=== PATIENT | female | born 1995 | race Caucasian/White ===

== ENCOUNTER 2024-03-19 02:59 | Inpatient (IN) | payer OTHER ==
[2024-03-19] VITALS (28 sets, daily range): BP systolic 110–169; BP diastolic 60–91; PULSE 71–110; TEMP 97.6–98.6
[~2024-03-19] VITALS: Ht 162.6 cm; Wt 75.9 kg
--- NOTE | 2024-03-19 03:15 | NUR ---
PT TO UNIT VIA WHEELCHAIR WITH SPOUSE WITH COMPLAINTS OF CTXs FOR THE LAST 2 HOURS. PT IS A G1L0 AT 40.4 WEEKS TODAY. DENIES LOF, VAGINAL BLEEDING. PT CHANGED INTO GOWN, ORIENTED TO ROOM, EFMX2 APPLIED, VS OBTAINED, SVE PERFORMED.
[2024-03-19] MEDS ORDERED: LR 1,000 ML IV PRN (03:30)
[2024-03-19] MEDS ORDERED: LR 1,000 ML IV SCH (03:30)
[2024-03-19] MEDS ORDERED: LR & Oxytocin 500 ML IV SCH (03:30)
--- NOTE | 2024-03-19 04:10 | NUR ---
0402- PT SITTING AT BEDSIDE FOR EPIDURAL PLACEMENT. BP SET TO EVERY 5 MINUTES, PULSE OX IN PLACE. 0404- Lenny GARCIA CRNA IN ROOM FOR EPIDURAL PLACEMENT. 0410- SINGLE SHOT GIVEN BY Lenny GARCIA CRNA. PT TOLERATED WELL. PT REPOSTIONED TO SEMIFOWLER WITH LEFT WEDGE.
[2024-03-19] MEDS ORDERED: ROPivacaine PF 0.2% 200 ML IV ONE (04:13)
[2024-03-19 04:16] LABS: BASO # 0.1 K/mm3 (0.0-0.2); BASO % 0.4 % (0.0-2.0); EOS # 0.1 K/mm3 (0.0-0.7); EOS % 0.8 % (0.0-4.0); GRAN # 10.7 K/mm3 (1.4-6.5); GRAN % 70.8 % (42.2-75.2); HEMATOCRIT 40.5 % (37.0-47.0); HEMOGLOBIN 13.9 g/dl (12.5-16.0); LYMPH # 3.1 K/mm3 (1.2-3.4); LYMPH % 20.8 % (20.0-51.0); MEAN CELL VOLUME 87 fl (80.0-100.0); MEAN CORPUSCULAR HEMOGLOBIN 30 pg (27-31); MEAN CORPUSCULAR HGB CONC 34 g/dl (33.0-37.0); MEAN PLATELET VOLUME 11.1 fl (7.4-10.4); MONO % 6.6 % (1.7-9.3); PLATELET COUNT 206 K/mm3 (130-400); RED BLOOD COUNT 4.66 M/mm3 (4.10-5.30); REDCELL DISTRIBUTION WIDTH-CV 12.9 % (11.5-14.5)
[2024-03-19] MEDS ORDERED: ePHEDrine 50 MG/10 ML VIAL IV PRN (04:30)
[2024-03-19] MEDS ORDERED: diphenhydrAMINE 50 MG/ML 1 ML VIAL IV PRN (04:30)
[2024-03-19] MEDS ORDERED: Ondansetron 4 MG/2 ML VIAL IV PRN (04:30)
[2024-03-19] MEDS ORDERED: LR 500 ML IV PRN (04:30)
[2024-03-19] MEDS ORDERED: LR 1,000 ML IV ONE (04:30)
[2024-03-19] MEDS ORDERED: Naloxone 0.4 MG/ML VIAL IV PRN ×2 (04:30→13:15)
[2024-03-19] MEDS ORDERED: diphenhydrAMINE 25 MG CAP PO PRN (04:30)
[2024-03-19] MEDS ORDERED: PRENATAL TABLET PO (05:37)
--- NOTE | 2024-03-19 07:17 | NUR ---
RN DISCUSSES POC WITH PT AND SPOUSE, PT VERBALIZES UNDERSTANDING AND HAS NO QUESTIONS AT THIS TIME.
--- NOTE | 2024-03-19 08:33 | NUR ---
RON DRAKE BEDSIDE, PERFORMS SVE/AROM WITH CLEAR FLUID.
--- NOTE | 2024-03-19 12:36 | NUR ---
RON DRAKE UPDATED ON SVE, PRACTICE PUSH, FHTS, CTX PATTERN. ORDERS TO START PUSHING AND CALL MD WHEN READY. 914 PUSHING BEGAN WITH RN BEDSIDE INSTRUCTING PT ON PUSHING.
--- NOTE | 2024-03-19 12:37 | NUR ---
0945 RN CALLS MD TO HEAD TO HOSPITAL
--- NOTE | 2024-03-19 12:39 | NUR ---
RN REMAINS BEDSIDE WITH PT WHILE PUSHING, ASSESSING PUSHING EFFORTS AND FHTS.
--- NOTE | 2024-03-19 12:55 | NUR ---
RN REMAINS BEDSIDE, RON DRAKE IN AND OUT OF ROOM PERIODICALLY TO ASSESS PUSHING EFFORTS BUT REMAINS ON UNIT WATCHING STRIP WHEN NOT IN ROOM.
--- NOTE | 2024-03-19 12:57 | NUR ---
RON DRAKE BEDSIDE PUSHING WITH PT
--- NOTE | 2024-03-19 12:58 | NUR ---
RON DRAKE AND DELIVERY TEAM BEDSIDE.
--- NOTE | 2024-03-19 13:01 | NUR ---
SPONTANEOUS VAGINAL DELIVERY OF VIABLE MALE INFANT AT 1139 WITH MD AND RN X3 BEDSIDE. PT TOLERATED DELIVERY WELL.
[2024-03-19] MEDS ORDERED: Tdap Vaccine 0.5 ML SYRINGE IM SCH (13:15)
[2024-03-19] MEDS ORDERED: Phenylephrine/Mineral Oil/Petrolatum 57 GM TUBE RC PRN (13:15)
[2024-03-19] MEDS ORDERED: Mag/Al Hydrox/Simeth Susp 30 ML CUP PO PRN (13:15)
[2024-03-19] MEDS ORDERED: Witch Hazel 50% Pads Bulk TUB TP PRN (13:15)
[2024-03-19] MEDS ORDERED: Ibuprofen 800 MG TAB PO SCH (13:15)
[2024-03-19] MEDS ORDERED: Loratadine 10 MG TAB PO PRN (13:15)
[2024-03-19] MEDS ORDERED: oxyCODONE 5 MG TAB PO PRN (13:15)
[2024-03-19] MEDS ORDERED: Acetaminophen 500 MG TAB PO SCH (13:15)
[2024-03-19] MEDS ORDERED: Magnes Hydrox (MOM) 80 MG/ML 30 ML CUP PO PRN (13:15)
[2024-03-19] MEDS ORDERED: Measles/Mumps/Rubella Virus Vaccine Live w Diluent 0.5 ML VIAL SQ SCH (13:15)
--- NOTE | 2024-03-19 15:13 | NUR ---
RN ASSISTS PT TO RESTROOM, PT UNABLE TO VOID. PERICARE PERFORMED AND GOWN CHANGED
[2024-03-19] MEDS ORDERED: Sennosides/Docusate 8.6-50 MG TAB PO SCH (17:00)
[2024-03-19] MEDS ORDERED: traZODone 50 MG TAB PO PRN (21:00)
[2024-03-20] VITALS: BP 124/56; PULSE 89; TEMP 98.1
[2024-03-20 04:00] VITALS: BP 120/67; PULSE 77; TEMP 98
[2024-03-20 07:20] VITALS: BP 113/73; PULSE 86; TEMP 98.6
[2024-03-20] MEDS ORDERED: IBU800 M1 PO (10:56)
--- NOTE | 2024-03-20 12:20 | NUR ---
Data: Parents accepted spiritual care visit offered during Surgical Services Assistant rounds. They hope to be discharged today. Assessment: Parents are grateful and hopeful. Plan of Care: Surgical Services Assistant offered congratulations and prayer. Parents expressed their thanks for the visit. Chaplains will remain available as needed/requested while Mother and Baby Ramone are admitted to this hospital.
--- NOTE | 2024-03-20 13:28 | NUR ---
DISCHARGE INSTRUCTIONS PROVIDED TO PT, PT VERBALIZES UNDERSTANDING, DENIES QUESTIONS. PT DISCHARGED AMBULATORY IN STABLE CONDITION WITH IN STABLE CONDITION, ACCOMPANIED BY . CAR SEAT STRAPS CHECKED AND PT ACCOMPANIED OUT BY THIS RN
== END 2024-03-20 13:28 | disposition home or self-care (01) | DRG 807 ==
LOC: LDRO 02:59 → LDR 03:34 → OB 14:58
PROVIDERS: Student in an Organized Health Care Education/Training Program; ADMIT Obstetrics & Gynecology
PROC: 10E0XZZ Delivery of Products of Conception, External Approach (ICD-10-PCS; principal; 2024-03-19)
PROC: 0KQM0ZZ Repair Perineum Muscle, Open Approach (ICD-10-PCS; 2024-03-19)
PROC: 10907ZC Drainage of Amniotic Fluid, Therapeutic from Products of Conception, Via Natural or Artificial Opening (ICD-10-PCS; 2024-03-19)
DX: O48.0 Post-term pregnancy (principal); Z37.0 Single live birth; O13.4 Gestational [pregnancy-induced] hypertension without significant proteinuria, complicating childbirth; Z3A.40 40 weeks gestation of pregnancy; O70.1 Second degree perineal laceration during delivery; O69.81X0 Labor and delivery complicated by cord around neck, without compression, not applicable or unspecified
CPT/HCPCS: J2795; J7120